=== PATIENT | female | born 1980 | race Caucasian/White ===

== ENCOUNTER → 2019-02-18 | Outpatient (CLI) | payer OTHER ==
--- NOTE | 2019-02-18 11:14 | US ---
EXAMINATION TYPE: US pelvic complete DATE OF EXAM: 02/18/2019 COMPARISON: NONE CLINICAL HISTORY: N92.1 Excessive and frequent menstruation. Heavy menses with clots, 2 prior c-secti ons TECHNIQUE: Transabdominal (TA) Date of LMP: 02/08/19 EXAM MEASUREMENTS: Uterus: 12.1 x 5.3 x 7.6 cm Endometrial Stripe: 0.6 cm Right Ovary: 2.6 x 2.7 x 3.1 cm Left Ovary: 3.5 x 2.1 x 2.4 cm 1. Uterus: Anteverted heterogeneous with at least 2 probable leiomyomas noted. The largest is intr amural measuring 2.7 x 2.3 x 2.1cm 2. Endometrium: appears wnl 3. Right Ovary: Dominant anechoic simple follicle measures 2.3 x 2.0 x 1.7cm 4. Left Ovary: follicles noted 5. Bilateral Adnexa: appears wnl 6. Posterior cul-de-sac: wnl IMPRESSION: 1. Heterogenous myometrium with at least 2 measurable small probable leiomyomas. The largest measures up to 2.7 cm and appears intramural. 2. Dominant right ovarian follicle, likely functional.
== END | disposition home or self-care (01) ==
LOC: RADUSWWP 09:04
PROVIDERS: ATTEND Family Medicine
DX: N85.8 Other specified noninflammatory disorders of uterus (principal); N92.1 Excessive and frequent menstruation with irregular cycle
CPT/HCPCS: 76856

== ENCOUNTER 2020-05-21 19:26 | Emergency (ER) | payer BC, OTHER ==
--- NOTE | 2020-05-21 21:00 | XR ---
EXAMINATION TYPE: XR chest 1V portable DATE OF EXAM: 05/21/2020 COMPARISON: None HISTORY: Shortness of breath TECHNIQUE: Single frontal view of the chest is obtained. FINDINGS: The lungs are clear consolidative, interstitial masslike opacity. There is no pleural effusion, pleural thickening or pneumothorax. The heart, pulmonary vasculature, mediastinum and hilum appear normal. The osseous structures and soft tissues are unremarkable IMPRESSION: No acute process.
--- NOTE | 2020-05-21 23:41 | ED ---
General Adult HPI - General Chief complaint: Shortness of Breath Stated complaint: ELLIOT Time Seen by Provider: 05/21/20 23:16 Source: patient Mode of arrival: ambulatory Limitations: no limitations - History of Present Illness Initial comments: Patient is a 39-year-old female who is Covid-positive approximately 8 days ago and had symptoms 10 days ago. She notes that while she was at home she was short of breath but has since gotten better. She notes that she is on a sure nothing was worsening. She denied any increase in cough or shortness of breath on the room. She was in no apparent distress or pain while sitting up in bed during exam and interview. She denied any chest pain headache nausea vomiting diarrhea constipation fever fatigue chills. - Related Data Allergies Allergy/AdvReac Type Severity Reaction Status Date / Time lanolin Allergy Unknown Verified 05/21/20 20:41 neomycin Allergy Unknown Verified 05/21/20 20:41 Review of Systems ROS Statement: Those systems with pertinent positive or pertinent negative responses have been documented in the HPI. ROS Other: All systems not noted in ROS Statement are negative. Past Medical History Past Medical History: Asthma Additional Past Medical History / Comment(s): covid 05-15-2020. pts symptoms started 9 days ago. History of Any Multi-Drug Resistant Organisms: None Reported Past Surgical History: Section Past Psychological History: No Psychological Hx Reported Smoking Status: Never smoker Past Alcohol Use History: Occasional Past Drug Use History: None Reported General Exam Limitations: no limitations General appearance: alert, in no apparent distress Head exam: Present: atraumatic, normocephalic, normal inspection Eye exam: Present: normal appearance, PERRL, EOMI. Absent: scleral icterus, conjunctival injection, periorbital swelling Neck exam: Present: normal inspection. Absent: tenderness, meningismus, lymphadenopathy Respiratory exam: Present: normal lung sounds bilaterally. Absent: respiratory distress, wheezes, rales, rhonchi, stridor Cardiovascular Exam: Present: regular rate, normal rhythm, normal heart sounds. Absent: systolic murmur, diastolic murmur, rubs, gallop, clicks GI/Abdominal exam: Present: soft, normal bowel sounds. Absent: distended, tenderness, guarding, rebound, rigid Extremities exam: Present: normal inspection, full ROM, normal capillary refill. Absent: tenderness, pedal edema, joint swelling, calf tenderness Neurological exam: Present: alert, oriented X3, CN II-XII intact Psychiatric exam: Present: normal affect, normal mood Skin exam: Present: warm, dry, intact, normal color. Absent: rash Course Vital Signs 05/21/20 20:33 Temperature 98.0 F Pulse Rate 77 Respiratory 18 Rate Blood Pressure 133/95 O2 Sat by Pulse 100 Oximetry Medical Decision Making - Medical Decision Making 39-year-old female Covid-positive. 8 Days ago, symptoms 10 days ago. Chest x-ray negative for any acute process. Patient was informed that she meets criteria for monoclonal antibody therapy, but declined at this point in time. Vital signs stable and within normal limits. Case discussed with Dr. Maza, patient can discharge home with conservative management. Disposition Clinical Impression: COVID-19 Disposition: HOME SELF-CARE Condition: Stable Additional Instructions: Please return to the Emergency Department if symptoms worsen or any other concerns. Can continue Advil medication such as Mucinex, Flonase, steroids prescribed by primary care. Continue quarantine until asymptomatic or 14 day, per CBC guidelines. Can take [id number] anti-inflammatories for any fever or muscle aches. Is patient prescribed a controlled substance at d/c from ED?: No Referrals: Mekhi Ruiz MD [Primary Care Provider] - 1-2 days Time of Disposition: 23:41
[2020-05-22 00:07] VITALS: BP 136/80; PULSE 75; RESP 18; TEMP 98.2
== END 2020-05-22 00:06 | disposition home or self-care (01) ==
LOC: EC 19:26
DX: U07.1 COVID-19 (principal); J45.909 Unspecified asthma, uncomplicated
CPT/HCPCS: 71045; 99284

== ENCOUNTER → 2022-05-04 | Outpatient (CLI) | payer BC ==
--- NOTE | 2022-05-06 08:58 | MM ---
Reason for Exam: Screening (asymptomatic). Baseline mammogram. Patient History: Menarche at age 9. First Full-Term at age 27. Premenopausal. Last menstrual period: 03/31/2022 Risk Values: Gin 5 year model risk: 0.7%. NCI Lifetime model risk: 12.0%. Prior Study Comparison: Patient's first Mammogram. Tissue Density: The breast tissue is heterogeneously dense. This may lower the sensitivity of mammography. Findings: Analyzed By CAD. No suspicious masses within either breast. No suspicious grouped microcalcifications in the right breast. No architectural distortion within either breast. There is punctate grouped calcifications within the outer lower quadrant of the left breast at middle to posterior depth. Overall Assessment: Incomplete: need additional imaging evaluation, BI-RAD 0 Management: Diagnostic Mammogram of the left breast. A clinical breast exam by your physician is recommended on an annual basis and results should be correlated with mammographic findings. [facility] will attempt to contact patient to return for supplemental views and ultrasound if indicated. Electronically signed and approved by: Tom Rodriguez D.O.
== END | disposition home or self-care (01) ==
LOC: RADMAMWWP 15:01
PROVIDERS: ATTEND Family Medicine
DX: Z12.31 Encounter for screening mammogram for malignant neoplasm of breast (principal)
CPT/HCPCS: 77063; 77067

== ENCOUNTER → 2022-05-10 | Outpatient (CLI) | payer BC ==
--- NOTE | 2022-05-11 13:33 | MM ---
Reason for Exam: Additional evaluation requested from abnormal screening. Last screening mammogram was performed less than 1 month ago. Patient History: Menarche at age 9. First Full-Term at age 27. Premenopausal. Risk Values: Gin 5 year model risk: 0.7%. NCI Lifetime model risk: 12.0%. Prior Study Comparison: 05/04/2022 Bilateral MG 3D screening mammo w/cad, [facility]. Tissue Density: Left: The breast tissue is heterogeneously dense. This may lower the sensitivity of mammography. Findings: Analyzed By CAD. There are faint punctate calcifications in the outer lower middle aspect left breast. Stereotactic core biopsy is recommended for additional workup. Overall Assessment: Suspicious, BI-RAD 4 Management: Stereotactic Core Biopsy of the left breast. A clinical breast exam by your physician is recommended on an annual basis and results should be correlated with mammographic findings. This exam should not preclude additional follow-up of suspicious palpable abnormalities. Results were given to the patient verbally at the time of exam. Electronically signed and approved by: Larry Castano D.O. Radiologis
== END | disposition home or self-care (01) ==
LOC: RADMAMWWP 14:24
PROVIDERS: ATTEND Family Medicine
DX: R92.8 Other abnormal and inconclusive findings on diagnostic imaging of breast (principal)
CPT/HCPCS: 77061; 77065

== ENCOUNTER → 2022-05-26 | Day surgery (SDC) | payer BC ==
--- NOTE | 2022-06-06 07:40 | MM ---
Risk Values: Gin 5 year model risk: 0.7%. NCI Lifetime model risk: 12.0%. Prior Study Comparison: 05/04/2022 Bilateral MG 3D screening mammo w/cad, [facility]. 05/10/2022 Left MG 3D work up w/cad , [facility]. Pathology Description: Marker Left Behind. Approach: CC FA Needle Type: Eviva Cores: 6 Skin Nicks: 1 Gauge: 9 no problems The procedure of stereotactic guided core biopsy was explained to the patient. Benefits, alternatives, and risks were discussed. An informed consent was then obtained. The shortness pathway for biopsy was chosen. Shortness pathway was an inferior approach. I performed the localization followed by the remainder of the procedure. A vacuum assisted biopsy gun was used to obtain 6 core samples. The patient tolerated the procedure well without any immediate complication. The patient was kept in the radiology department for short stay after the procedure and then discharged home in stable condition. Targeted calcifications are identified in specimen mammogram. Post biopsy mammogram shows the clip to appear in satisfactory position relative to the targeted area of concern on the preprocedure images. IMPRESSION: SUCCESSFUL, UNCOMPLICATED STEREOTACTIC GUIDED CORE BIOPSY OF INDETERMINATE MICROCALCIFICATIONS FOR O'CLOCK POSTERIOR LEFT BREAST. Pathology Results: Result: High risk, Flat epithelial atypia. LEFT BREAST, STEREOTACTIC NEEDLE CORE BIOPSY: Flat epithelial atypia (FEA) with calcifications in a background of fibrocystic changes including fibrosis, cysts, and columnar cell change/columnar cell hyperplasia. See note. Notes There are focal features suggestive of possible atypical lobular hyperplasia. Given the findings, E-Cadherin and CK5/6 immunostains will be performed and an addendum will follow. Overall Assessment: High risk Management: Surgical Consultation of the left breast. Electronically signed and approved by: Amina Gerardo M.D. Radiologist
== END ==
LOC: RADMAMWWP 10:08
PROVIDERS: ATTEND Family Medicine
DX: N60.12 Diffuse cystic mastopathy of left breast (principal); R92.1 Mammographic calcification found on diagnostic imaging of breast
CPT/HCPCS: 88305; 88342; 88341; 19081; A4648